=== PATIENT | male | born 1940 | race Caucasian/White ===

== ENCOUNTER 2021-12-23 10:05 | Emergency (ER) | payer MEDICARE ==
[~2021-12-23] VITALS: Ht 175 cm; Wt 87.8 kg
--- NOTE | 2021-12-23 10:22 | ED Cardiac General ---
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 He feels like he felt a thump and his heart a round noon yesterday, and he thought maybe his defibrillator went off. He woke up on the ground with left-sided chest wall and abdominal pain. Unsure if he hit his head. Does not have a headache at this time. He did not give himself factor, and he believes his factor is slightly outdated. The pain in his side is moderate, constant, throbbing, worse when he tries to touch his left ribs, better with rest. He has not taken any medicines for it. Allergies and Home Medications Allergies Coded Allergies: strawberry (Verified Allergy, Unknown, 12/23/21) Patient Home Medication List Home Medication List Reviewed: Yes Review of Systems Review of Systems Constitutional: No chills, No fever EENTM: No Blurred Vision Respiratory: Denies Cough; Shortness of Air Cardiovascular: Syncope Gastrointestinal: No Symptoms Reported Genitourinary: No Symptoms Reported Musculoskeletal: no symptoms reported Skin: no symptoms reported Psychiatric/Neurological: No Symptoms Reported Endocrine: No Symptoms Reported Hematologic/Lymphatic: Easy Bleeding, Easy Bruising All Other Systems Reviewed Negative Unless Noted: Yes Physical Exam Vital Signs Vital Signs - First Documented 12/23/21 10:37 Temp 36.0 Pulse 72 Resp 27 B/P (MAP) 131/66 (87) Pulse Ox 94 O2 Delivery Room Air Capillary Refill : Height, Weight, BMI Height: '" Weight: lbs. oz. kg; BMI Method: General Appearance: No Apparent Distress, WD/WN HEENT: PERRL/EOMI, Normal ENT Inspection, Pharynx Normal Neck: Full Range of Motion, Normal Inspection, Non Tender, Supple Respiratory: Lungs Clear, Normal Breath Sounds, No Accessory Muscle Use, No Respiratory Distress, Other (tender along left chest) Cardiovascular: Regular Rate, Rhythm, No Edema, Normal Peripheral Pulses Gastrointestinal: Normal Bowel Sounds, Soft; No Distended, No Guarding; Tenderness (left side of abdomen) Extremity: Normal Capillary Refill, Normal Inspection, Normal Range of Motion, Non Tender, No Calf Tenderness, No Pedal Edema Neurologic/Psychiatric: Alert, Oriented x3, No Motor/Sensory Deficits, Normal Mood/Affect, construction carpenter II-XII Norm as Tested Skin: Normal Color, Warm/Dry Lymphatic: No Adenopathy Progress/Results/Core Measures Results/Orders Lab Results Laboratory Tests Test 12/23/21 10:20 Range/Units White Blood Count 6.8 4.3-11.0 10^3/uL Red Blood Count 5.10 4.30-5.52 10^6/uL Hemoglobin 16.3 13.3-17.7 g/dL Hematocrit 49 40-54 % Mean Corpuscular Volume 95 80-99 fL Mean Corpuscular Hemoglobin 32 25-34 pg Mean Corpuscular Hemoglobin Concent 34 32-36 g/dL Red Cell Distribution Width 13.5 10.0-14.5 % Platelet Count 199 130-400 10^3/uL Mean Platelet Volume 9.5 9.0-12.2 fL Immature Granulocyte % (Auto) 0 % Neutrophils (%) (Auto) 67 42-75 % Lymphocytes (%) (Auto) 22 12-44 % Monocytes (%) (Auto) 8 0-12 % Eosinophils (%) (Auto) 2 0-10 % Basophils (%) (Auto) 1 0-10 % Neutrophils # (Auto) 4.5 1.8-7.8 10^3/uL Lymphocytes # (Auto) 1.5 1.0-4.0 10^3/uL Monocytes # (Auto) 0.5 0.0-1.0 10^3/uL Eosinophils # (Auto) 0.1 0.0-0.3 10^3/uL Basophils # (Auto) 0.0 0.0-0.1 10^3/uL Immature Granulocyte # (Auto) 0.0 0.0-0.1 10^3/uL Prothrombin Time 12.7 12.2-14.7 SEC INR Comment 0.9 0.8-1.4 Activated Partial Thromboplast Time 63 H 24-35 SEC Sodium Level 137 135-145 MMOL/L Potassium Level 4.7 3.6-5.0 MMOL/L Chloride Level 102 98-107 MMOL/L Carbon Dioxide Level 24 21-32 MMOL/L Anion Gap 11 5-14 MMOL/L Blood Urea Nitrogen 14 7-18 MG/DL Creatinine 1.25 0.60-1.30 MG/DL Estimat Glomerular Filtration Rate 57 BUN/Creatinine Ratio 11 Glucose Level 128 H 70-105 MG/DL Calcium Level 9.9 8.5-10.1 MG/DL Corrected Calcium 9.7 8.5-10.1 MG/DL Total Bilirubin 0.9 0.1-1.0 MG/DL Aspartate Amino Transf (AST/SGOT) 17 5-34 U/L Alanine Aminotransferase (ALT/SGPT) 12 0-55 U/L Alkaline Phosphatase 106 40-136 U/L Troponin I < 0.30 <0.30 NG/ML Pro-B-Type Natriuretic Peptide 1836.0 H <75.0 PG/ML Total Protein 8.2 6.4-8.2 GM/DL Albumin 4.2 3.2-4.5 GM/DL My Orders Orders - JOHN MITCHELL MD Cbc With Automated Diff (12/23/21 10:22) Comprehensive Metabolic Panel (12/23/21 10:22) Protime With Inr (12/23/21 10:22) Partial Thromboplastin Time (12/23/21 10:22) Probnp Fs (12/23/21 10:22) Troponin I Fs (12/23/21 10:22) Ed Iv/Invasive Line Start (12/23/21 10:22) Ekg Tracing (12/23/21 10:22) Monitor-Rhythm Ecg Trace Only (12/23/21 10:22) Iohexol Injection (Omnipaque 350 Mg/Ml 1 (12/23/21 10:45) Received Contrast (Hold Metformin- Contr (12/23/21 10:45) Ns (Ivpb) (Sodium Chloride 0.9% Ivpb Bag (12/23/21 10:45) Chest Pa/Lat (2 View) (12/23/21 11:18) Vital Signs/I&O 12/23/21 12/23/21 10:37 13:08 Temp 36.0 36.0 Pulse 72 70 Resp 27 24 B/P (MAP) 131/66 (87) 113/60 Pulse Ox 94 94 O2 Delivery Room Air Room Air Progress Progress Note : Progress Note 81-year-old male with above history presenting after a syncopal episode. ABCs were intact and vitals were stable on presentation. Physical exam with point tenderness along his left chest wall and left abdomen. EKG with a ventricularly paced rhythm with no other acute abnormalities. We discussed his [employer] defibrillator and he got a report from it that he has been in chronic A. fib which is normal for him, there were no defibrillations or events otherwise. Hemoglobin normal, troponin negative, BNP elevated, creatinine 1.2 with no prior baseline. Attempted CT head, C-spine, chest, abdomen, pelvis given his hemophilia history with the trauma. Unfortunately the CT scanner broke just prior to him getting his scan done so we were unable. I then did a FAST exam which did show fluid in his left lower lung field concerning for hemothorax. Chest x-ray consistent with this with also some rib fractures. 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 They accepted him for transfer. Initial ECG Impression Date: December 23, 2021 Initial ECG Impression Time: 10:29 Initial ECG Rate: 69 Comment Ventricularly paced rhythm with a wide QRS, no significant ST changes that would be unexpected with his paced rhythm or T wave abnormalities Diagnostic Imaging Diagonstic Imaging: Xray Plain Films/CT/US/NM/MRI: chest Comments NAME: VINH BRANDON [facility] REC#: [id number] PT STATUS: REG ER : 1940 PHYSICIAN: JOHN MITCHELL MD ADMIT DATE: 12/23/21/ER FS Draft Date of Exam:12/23/21 CHEST PA/LAT (2 VIEW) HISTORY: Fall with left rib and flank pain and shortness of breath COMPARISON: None TECHNIQUE: 2 views of the chest FINDINGS: There is a small left pleural effusion with associated atelectasis. There is no pneumothorax. The cardiac silhouette is normal in size. The right-sided AICD leads appear normal. The right lung is clear. There are mildly displaced fractures of the lateral left 8th and 9th ribs. There are degenerative changes throughout the thoracic spine. IMPRESSION: 1. Small left pleural effusion with associated atelectasis. 2. Mildly displaced fractures of the left 8th and 9th ribs. Dictated on workstation # [id number] Dict: 12/23/21 1155 Trans: 12/23/21 1158 [facility] [id number] Interpreted by: NICO HILL MD Electronically signed by: Departure Impression Primary Impression: Fall Qualified Codes: W19.XXXA - Unspecified fall, initial encounter Additional Impressions: Left rib fracture Qualified Codes: S22.42XA - Multiple fractures of ribs, left side, initial encounter for closed fracture Hemophilia A Hemothorax on left Disposition: XFER SHT-TRM HOSP Condition: Stable Admissions Decision to Admit/Date: December 23, 2021 Time/Decision to Admit Time: 12:00 Transfer Transfer Reason: Patient preference (multiple launch [employer] system crewmember at [facility]) Time Spoke to Accepting Phy: 12:25 Transfer Progress Notes Discussed the case with Dr. Juarez at [facility] given the patient's multiple launch rocket system crewmember is there and he prefers to be transferred there. She excepted him for further evaluation and management. Transfer Facility: [facility] Method of Transfer: EMS Departure-Patient Inst. Referrals: DOUG MYERS DO (PCP) Primary Care Physician JOHN MITCHELL MD December 23, 2021 10:22
[2021-12-23 10:27] LABS: BASOPHILS % (AUTO) 1 % (0-10); EOSINOPHILS # (AUTO) 0.1 10^3/uL (0.0-0.3); EOSINOPHILS % (AUTO) 2 % (0-10); HEMATOCRIT 49 % (40-54); HEMOGLOBIN 16.3 g/dL (13.3-17.7); LYMPHOCYTES # (AUTO) 1.5 10^3/uL (1.0-4.0); LYMPHOCYTES % (AUTO) 22 % (12-44); MEAN CORPUSCULAR HEMOGLOBIN 32 pg (25-34); MEAN CORPUSCULAR HGB CONC 34 g/dL (32-36); MEAN CORPUSCULAR VOLUME 95 fL (80-99); MEAN PLATELET VOLUME 9.5 fL (9.0-12.2); MONOCYTES # (AUTO) 0.5 10^3/uL (0.0-1.0); MONOCYTES % (AUTO) 8 % (0-12); NEUTROPHILS # (AUTO) 4.5 10^3/uL (1.8-7.8); NEUTROPHILS % (AUTO) 67 % (42-75); PLATELET COUNT 199 10^3/uL (130-400); WHITE BLOOD COUNT 6.8 10^3/uL (4.3-11.0)
[2021-12-23] MEDS ORDERED: HOLD METFORMIN - RECEIVED CONTRAST 20 ML VIAL IV SCH (10:45)
[2021-12-23] MEDS ORDERED: NS 100 ML (IVPB) BAG IV ONE (10:45)
[2021-12-23] MEDS ORDERED: IOHEXOL 350 MG/ML 100 ML (OMNIPAQUE 350) VIAL IV ONE (10:45)
[2021-12-23 10:51] LABS: ALANINE AMINOTRANSFERASE 12 U/L (0-55); ALKALINE PHOSPHATASE 106 U/L (40-136); BILIRUBIN,TOTAL 0.9 MG/DL (0.1-1.0); BUN/CREATININE RATIO 11; CALCIUM 9.9 MG/DL (8.5-10.1); CARBON DIOXIDE 24 MMOL/L (21-32); CHLORIDE 102 MMOL/L (98-107); CREATININE SERUM 1.25 MG/DL (0.60-1.30); GFR ESTIMATED 57; GLUCOSE 128 MG/DL (70-105); POTASSIUM 4.7 MMOL/L (3.6-5.0); SODIUM 137 MMOL/L (135-145)
[2021-12-23 10:52] LABS: ALBUMIN 4.2 GM/DL (3.2-4.5); TOTAL PROTEIN 8.2 GM/DL (6.4-8.2)
--- NOTE | 2021-12-23 11:58 | Diagnostic Imaging Report ---
HISTORY: Fall with left rib and flank pain and shortness of breath COMPARISON: None TECHNIQUE: 2 views of the chest FINDINGS: There is a small left pleural effusion with associated atelectasis. There is no pneumothorax. The cardiac silhouette is normal in size. The right-sided AICD leads appear normal. The right lung is clear. There are mildly displaced fractures of the lateral left 8th and 9th ribs. There are degenerative changes throughout the thoracic spine. IMPRESSION: 1. Small left pleural effusion with associated atelectasis. 2. Mildly displaced fractures of the left 8th and 9th ribs. Dictated by: Dictated on workstation # [id number]
[2021-12-23 12:51] LABS: PROTHROMBIN TIME PATIENT 12.7 SEC (12.2-14.7)
[2021-12-23 12:52] LABS: INR 0.9 (0.8-1.4)
[2021-12-23 13:08] VITALS: BP 113/60
== END 2021-12-23 13:08 | disposition short-term general hospital (02) ==
LOC: ER FS 10:08
DX: S22.42XA Multiple fractures of ribs, left side, initial encounter for closed fracture (principal); S27.1XXA Traumatic hemothorax, initial encounter; D66 Hereditary factor VIII deficiency; F17.200 Nicotine dependence, unspecified, uncomplicated; Z95.810 Presence of automatic (implantable) cardiac defibrillator; W19.XXXA Unspecified fall, initial encounter
CPT/HCPCS: 36415; 71046; 80053; 83880; 84484; 85025; 85610; 85730; 93005; 93041